=== PATIENT | female | born 1955 ===

== ENCOUNTER → 2017-11-10 17:05 | Outpatient (CLI) | payer OTHER ==
[~2017-11-10 17:05] MED LIST: ATROVENT 00.5 MG/2.5 IH; CEFADROXIL500 MG PO; CEFUROXIME500 MG PO; TUSSIONEX PENNKI5 ML PO; XOPENEX1.25 MG/0. IH
== END | disposition home or self-care (01) ==
LOC: RAD 17:05
DX: M25.562 Pain in left knee (principal)

== ENCOUNTER 2017-11-11 13:40 | Outpatient (CLI) | payer OTHER | END 2017-11-11 13:59 | disposition home or self-care (01) | LOC: MRI 13:40 | DX: M25.562 Pain in left knee (principal) | CPT/HCPCS: 73721 ==